=== PATIENT | female | born 1985 | race African-American/Black ===

== ENCOUNTER 2018-11-02 10:25 | Outpatient (CLI) | payer OTHER ==
[2018-11-02 12:12] LABS: APPEARANCE,URINE CLEAR (CLEAR); BILIRUBIN,URINE NEGATIVE (NEGATIVE); BLOOD, URINE NEGATIVE (NEGATIVE); COLOR,URINE YELLOW (YELLOW); LEUKOCYTE ESTERASE ,URINE NEGATIVE (NEGATIVE); NITRITE, URINE NEGATIVE (NEGATIVE); UGLUCOSE 3+ (NEGATIVE)
[2018-11-02 12:14] LABS: BASOPHILS # (AUTO) 0.1 K/uL (0.00-0.22); BASOPHILS % (AUTO) 0.7 % (0.0-2.0); EOSINOPHILS # (AUTO) 0.1 K/uL (0-0.4); EOSINOPHILS % (AUTO) 1.3 % (0.0-4.0); HEMATOCRIT 43.9 % (36-48); HEMOGLOBIN 14.4 g/dL (12.0-16.0); LYMPHOCYTES # (AUTO) 3.1 K/uL (2.5-16.5); LYMPHOCYTES % (AUTO) 32.6 % (20.5-51.1); MEAN CORPUSCULAR HEMOGLOBIN 28 pg (27-31); MEAN CORPUSCULAR HGB CONC 33 g/dL (33-37); MEAN CORPUSCULAR VOLUME 83.8 fL (80-94); MONOCYTES # (AUTO) 0.5 K/uL (0.8-1.0); MONOCYTES % (AUTO) 5.7 % (1.7-9.3); NEUTROPHILS # (AUTO) 5.7 K/uL (1.8-7.7); NEUTROPHILS % (AUTO) 59.7 % (42.2-75.2); PLATELET COUNT (AUTO) 448 K/uL (140-450); RED BLOOD CELL COUNT(AUTO) 5.24 MIL/uL (4.20-5.40); RED CELL DISTRIBUTION WIDTH 12.8 % (11.6-13.7); WHITE BLOOD COUNT (AUTO) 9.5 K/uL (4.8-10.8)
[2018-11-02 12:41] LABS: CARBON DIOXIDE 24.7 mmol/L (21-32); CHOL/HDL RATIO 5.5 (1-4.5); CREATININE 0.7 mg/dL (0.6-1.3); POTASSIUM 3.7 mmol/L (3.5-5.1); THYROID STIMULATING HORMONE 1.46 uIU/mL (0.34-3.74); TOTAL BILIRUBIN 0.4 mg/dL (0.0-1.0)
[2018-11-02 12:47] LABS: RBC,URINE 0-5 /HPF (0-5); WBC,URINE 0-5 /HPF (0-5)
[2018-11-03 15:15] LABS: MICROALBUMIN, UR RANDOM 101.8 ug/mL (Not Estab.)
== END 2018-11-02 20:01 | disposition home or self-care (01) ==
LOC: MLB 10:25
DX: Z00.00 Encounter for general adult medical examination without abnormal findings (principal)
CPT/HCPCS: 36415; 80053; 81001; 82043; 83036; 84443; 84703; 85025; 87086

== ENCOUNTER 2020-06-19 12:04 | Outpatient (CLI) | payer OTHER | END 2020-06-19 17:40 | disposition home or self-care (01) | LOC: MLB 12:04 | DX: Z20.828 Contact with and (suspected) exposure to other viral communicable diseases (principal) ==